=== PATIENT | male | born 1985 | race American Indian/Alaskan Native ===

== ENCOUNTER 2019-05-22 11:16 | Inpatient (IN) | payer BC ==
--- NOTE | 2019-05-22 11:27 | Emergency Department Report ---
Blank Doc - Documentation Documentation: 33-year-old male that presents with weakness, body aches, and tingling sensati on. This initial assessment/diagnostic orders/clinical plan/treatment(s) is/are subject to change based on patient's health status, clinical progression and re- assessment by fellow clinical providers in the ED. Further treatment and workup at subsequent clinical providers discretion. Patient/guardians urged not to elope from the ED as their condition may be serious if not clinically assessed and managed. Initial orders include: 1- Patient sent to Main for further evaluation and treatment 2- labs 3- UA
[2019-05-22] MEDS ORDERED: SODIUM CHLORIDE 0.9% 1000 ML 1,000 ML IV ONE ×4 (11:39→16:54)
[2019-05-22] MEDS ORDERED: INSULIN REGULAR, HUMAN 100 UNITS/1 ML IV ONE ×3 (11:49→16:54)
[2019-05-22] MEDS ORDERED: ONDANSETRON 4 MG/2 ML INJ IV ONE ×2 (11:58→15:49)
[2019-05-22 12:02] LABS: Basophils % (Auto) 0.3 % (0.0-1.8); Eosinophils # (Auto) 0.2 K/mm3 (0.0-0.4); Eosinophils % (Auto) 1.9 % (0.0-4.3); Hemoglobin 17.2 gm/dl (11.8-15.2); Lymphocytes # (Auto) 1.6 K/mm3 (1.2-5.4); Mean Corpuscular HGB Conc 34 % (32-34); Mean Corpuscular Volume 91 fl (84-94); Monocytes # (Auto) 0.6 K/mm3 (0.0-0.8); Monocytes % (Auto) 6.1 % (0.0-7.3); Platelet Count 304 K/mm3 (140-440); Red Blood Count 5.49 M/mm3 (3.65-5.03); Red Cell Distribution Width 13.1 % (13.2-15.2)
--- NOTE | 2019-05-22 12:08 | Emergency Department Report ---
ED General Adult HPI - General Chief complaint: Hyperglycemia Stated complaint: LEGS TINGLING/VOMITING/WEAKNESS Time Seen by Provider: 05/22/19 11:26 Source: patient Mode of arrival: Ambulatory Limitations: No Limitations - History of Present Illness Initial comments: 33-year-old male with a past medical history [id number] diabetes, asthma, hypertension, and obesity presents to the hospital complaining of uncontrolled sugars and feeling bad for the last week. Patient stopped taking his metformin on May 14. He has plenty of medication available. He started to have increased thirst, increased frequency in urination, bilateral leg pain, intermittent nausea vomiting and therefore we started the medication on May 19. Despite restarting the medication he does not feel any better. He denies any abdominal pain, fever, or dysuria. Current meds include metformin 500 mg twice a day Lisinopril/hydrochlorothiazide 20/25 mg PMD: Dr Nuñez - Related Data Home Medications Medication Instructions Recorded Confirmed Last Taken Acetaminophen-Codeine #4 TAB 2 PO Q6H 02/17/15 02/17/15 Unknown Previous Rx's Medication Instructions Recorded Last Taken Type Metoprolol [Lopressor TAB] 25 mg PO BID #60 tablet 02/21/15 Unknown Rx amLODIPine [Norvasc] 5 mg PO DAILY #30 tab 02/21/15 Unknown Rx Allergies Allergy/AdvReac Type Severity Reaction Status Date / Time No Known Allergies Allergy Verified 02/21/15 08:39 ED Review of Systems ROS: Stated complaint: LEGS TINGLING/VOMITING/WEAKNESS Other details as noted in HPI ED Past Medical Hx - Past Medical History Previous Medical History?: Yes Hx Hypertension: Yes Hx Congestive Heart Failure: No Hx Diabetes: Yes Hx Asthma: Yes Hx COPD: No Additional medical history: chronic pain - Surgical History Additional Surgical History: CRISPIN - Social History Smoking Status: Current Every Day Smoker Substance Use Type: Alcohol - Medications Home Medications: Home Medications Medication Instructions Recorded Confirmed Last Taken Type Acetaminophen-Codeine #4 TAB 2 PO Q6H 02/17/15 02/17/15 Unknown History Metoprolol [Lopressor TAB] 25 mg PO BID #60 tablet 02/21/15 Unknown Rx amLODIPine [Norvasc] 5 mg PO DAILY #30 tab 02/21/15 Unknown Rx ED Physical Exam - General Limitations: No Limitations ED Course Vital Signs 05/22/19 05/22/19 05/22/19 11:17 12:24 12:30 Temperature 97.4 F L Pulse Rate 109 H 106 H Respiratory 18 10 L Rate Blood Pressure 151/82 138/71 O2 Sat by Pulse 93 89 96 Oximetry 05/22/19 05/22/19 05/22/19 12:46 13:00 14:00 Temperature Pulse Rate 108 H 109 H 97 H Respiratory 11 L 22 16 Rate Blood Pressure 121/70 122/68 121/76 O2 Sat by Pulse 93 95 98 Oximetry 05/22/19 05/22/19 14:16 14:30 Temperature Pulse Rate 94 H 95 H Respiratory 14 11 L Rate Blood Pressure 102/72 106/67 O2 Sat by Pulse 94 93 Oximetry ED Medical Decision Making - Lab Data Result diagrams: 05/22/19 11:46 05/22/19 11:46 Lab Results 05/22/19 05/22/19 05/22/19 Range/Units 11:32 11:46 11:46 WBC 10.5 (4.5-11.0) K/mm3 RBC 5.49 H (3.65-5.03) M/mm3 Hgb 17.2 H (11.8-15.2) gm/dl Hct 50.0 H (35.5-45.6) % MCV 91 (84-94) fl MCH 31 (28-32) pg MCHC 34 (32-34) % RDW 13.1 L (13.2-15.2) % Plt Count 304 (140-440) K/mm3 Lymph % (Auto) 15.0 (13.4-35.0) % [place] % (Auto) 6.1 (0.0-7.3) % Eos % (Auto) 1.9 (0.0-4.3) % Baso % (Auto) 0.3 (0.0-1.8) % Lymph # 1.6 (1.2-5.4) K/mm3 [place] # 0.6 (0.0-0.8) K/mm3 Eos # 0.2 (0.0-0.4) K/mm3 Baso # 0.0 (0.0-0.1) K/mm3 Seg Neutrophils % 76.7 H (40.0-70.0) % Seg Neutrophils # 8.1 H (1.8-7.7) K/mm3 VBG pH (7.320-7.420) Sodium 119 L* (137-145) mmol/L Potassium 4.4 (3.6-5.0) mmol/L Chloride 76.3 L (98-107) mmol/L Carbon Dioxide 19 L (22-30) mmol/L Anion Gap 28 mmol/L BUN 27 H (9-20) mg/dL Creatinine 1.4 (0.8-1.5) mg/dL Estimated GFR > 60 ml/min BUN/Creatinine Ratio 19 % Glucose 870 H* (75-100) mg/dL POC Glucose > 500 H (70-105) Calcium 9.3 (8.4-10.2) mg/dL Total Bilirubin 1.40 H (0.1-1.2) mg/dL AST 21 (5-40) units/L ALT 28 (7-56) units/L Alkaline Phosphatase 113 (35-129) units/L Total Protein 7.6 (6.3-8.2) g/dL Albumin 4.0 (3.9-5) g/dL Albumin/Globulin Ratio 1.1 % Urine Color (Yellow) Urine Turbidity (Clear) Urine pH (5.0-7.0) Ur Specific [place] (1.003-1.030) Urine Protein (Negative) mg/dL Urine Glucose (UA) (Negative) mg/dL Urine Ketones (Negative) mg/dL Urine Blood (Negative) Urine Nitrite (Negative) Urine Bilirubin (Negative) Urine Urobilinogen (<2.0) mg/dL Ur Leukocyte Esterase (Negative) Urine WBC (Auto) (0.0-6.0) /HPF Urine RBC (Auto) (0.0-6.0) /HPF U Epithel Cells (Auto) (0-13.0) /HPF Urine Mucus /HPF 05/22/19 05/22/19 Range/Units 11:46 11:48 WBC (4.5-11.0) K/mm3 RBC (3.65-5.03) M/mm3 Hgb (11.8-15.2) gm/dl Hct (35.5-45.6) % MCV (84-94) fl MCH (28-32) pg MCHC (32-34) % RDW (13.2-15.2) % Plt Count (140-440) K/mm3 Lymph % (Auto) (13.4-35.0) % [place] % (Auto) (0.0-7.3) % Eos % (Auto) (0.0-4.3) % Baso % (Auto) (0.0-1.8) % Lymph # (1.2-5.4) K/mm3 [place] # (0.0-0.8) K/mm3 Eos # (0.0-0.4) K/mm3 Baso # (0.0-0.1) K/mm3 Seg Neutrophils % (40.0-70.0) % Seg Neutrophils # (1.8-7.7) K/mm3 VBG pH 7.410 (7.320-7.420) Sodium (137-145) mmol/L Potassium (3.6-5.0) mmol/L Chloride (98-107) mmol/L Carbon Dioxide (22-30) mmol/L Anion Gap mmol/L BUN (9-20) mg/dL Creatinine (0.8-1.5) mg/dL Estimated GFR ml/min BUN/Creatinine Ratio % Glucose (75-100) mg/dL POC Glucose (70-105) Calcium (8.4-10.2) mg/dL Total Bilirubin (0.1-1.2) mg/dL AST (5-40) units/L ALT (7-56) units/L Alkaline Phosphatase (35-129) units/L Total Protein (6.3-8.2) g/dL Albumin (3.9-5) g/dL Albumin/Globulin Ratio % Urine Color Straw (Yellow) Urine Turbidity Clear (Clear) Urine pH 6.0 (5.0-7.0) Ur Specific [place] 1.026 (1.003-1.030) Urine Protein <15 mg/dl (Negative) mg/dL Urine Glucose (UA) >=500 (Negative) mg/dL Urine Ketones Neg (Negative) mg/dL Urine Blood Neg (Negative) Urine Nitrite Neg (Negative) Urine Bilirubin Neg (Negative) Urine Urobilinogen < 2.0 (<2.0) mg/dL Ur Leukocyte Esterase Neg (Negative) Urine WBC (Auto) < 1.0 (0.0-6.0) /HPF Urine RBC (Auto) 2.0 (0.0-6.0) /HPF U Epithel Cells (Auto) < 1.0 (0-13.0) /HPF Urine Mucus Few /HPF corrected sodium tapia 131, Elizabeth 137 - Medical Decision Making pt provided toradol and morphine for cramps glucose improving with treatment Insulin boluses and normal saline pseudohyponatremia due to hyperglcemia corrected value 131-137 repeat bmp ordered hospitalist informed for admission - Differential Diagnosis hhnk, hyperglycemia, dka, uti, dehydration Critical Care Time: No Critical care attestation.: If time is entered above; I have spent that time in minutes in the direct care of this critically ill patient, excluding procedure time. ED Disposition Clinical Impression: Hyperglycemia, Noncompliance with medication regimen, Morbid obesity with BMI of 45.0-49.9, adult Disposition: OP ADMIT IP TO THIS HOSP Is pt being admited?: Yes Condition: Stable Referrals: TERRENCE NUÑEZ MD [Primary Care Provider] - 3-5 Days Time of Disposition: 17:03 (Dr Mike/hosp)
[2019-05-22 12:14] LABS: Bilirubin,Urine NEG (Negative); Blood,Urine NEG (Negative); Color,Urine Straw (Yellow); Mucus,Urine FEW /HPF; Protein,Urine <15 mg/dL mg/dL (Negative); Urobilinogen,Urine < 2.0 mg/dL (<2.0); WBC,Urine < 1.0 /HPF (0.0-6.0)
[2019-05-22 12:32] LABS: Alanine Aminotransferase 28 units/L (7-56); BUN/Creatinine Ratio 19; Blood Urea Nitrogen 27 mg/dL (9-20); Calcium 9.3 mg/dL (8.4-10.2); Hemolysis Index 51
[2019-05-22] MEDS ORDERED: KETOROLAC 30 MG/1 ML INJ IV ONE (13:05)
[2019-05-22] MEDS ORDERED: HYDROmorphone 1 MG/1 ML INJ IV ONE (13:51)
[2019-05-22] MEDS ORDERED: MORPHINE 4 MG/1 ML INJ IV ONE (15:49)
[2019-05-22 17:44] LABS: BUN/Creatinine Ratio 17; Blood Urea Nitrogen 26 mg/dL (9-20); Calcium 8.2 mg/dL (8.4-10.2); Hemolysis Index 38
[2019-05-22] MEDS ORDERED: ACETAMINOPHEN 325 MG TAB PO PRN ×2 (18:10→18:11)
[2019-05-22] MEDS ORDERED: ONDANSETRON 4 MG/2 ML INJ IV PRN (18:10)
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
[2019-05-22] MEDS ORDERED: POTASSIUM CHLORIDE 10 MEQ 10 MEQ/100 ML BAG IV PRN ×2 (19:00)
[2019-05-22] MEDS ORDERED: D5W/0.45% NACL/KCL 20 MEQ 20 MEQ/1,000 ML BAG IV SCH (19:00)
[2019-05-22] MEDS ORDERED: amLODIPine 5 MG TAB PO SCH (19:00)
[2019-05-22] MEDS ORDERED: INSULIN REGULAR, HUMAN 100 UNITS in SODIUM CHLORIDE 0.9% 99 ML IV SCH (19:00)
[2019-05-22] MEDS: HYDROmorphone 1 MG/1 ML INJ IV PRN ×2 (19:26→22:53)
[2019-05-22] MEDS ORDERED: HYDROmorphone 1 MG/1 ML INJ ONE ×2 (19:27→22:55)
[2019-05-22 22:27] LABS: BUN/Creatinine Ratio 16; Blood Urea Nitrogen 21 mg/dL (9-20); Calcium 8.2 mg/dL (8.4-10.2); Hemolysis Index 228
[2019-05-22] MEDS ORDERED: HEPARIN 5,000 UNIT/1 ML VIAL ONE (22:45)
[2019-05-22] MEDS ORDERED: FAMOTIDINE 20 MG/2 ML INJ IV ONE (22:46)
[2019-05-22] MEDS: HEPARIN 5,000 UNIT/1 ML VIAL SUB-Q SCH (22:51)
[2019-05-22] MEDS: FAMOTIDINE 20 MG/2 ML INJ IV SCH (22:51)
[2019-05-22] MEDS: METOPROLOL TARTRATE 25 MG TAB PO SCH (22:54)
[2019-05-23 01:33] LABS: BUN/Creatinine Ratio 17; Blood Urea Nitrogen 19 mg/dL (9-20); Hemolysis Index 32
[2019-05-23] MEDS ORDERED: ACETAMINOPHEN 325 MG TAB ONE (03:25)
[2019-05-23] MEDS ORDERED: ONDANSETRON 4 MG/2 ML INJ ONE ×2 (03:25→07:54)
[2019-05-23 03:52] LABS: Blood Urea Nitrogen 19 mg/dL (9-20)
[2019-05-23 03:53] LABS: BUN/Creatinine Ratio 17; Hemolysis Index 32
[2019-05-23 04:08] LABS: BUN/Creatinine Ratio 20; Blood Urea Nitrogen 18 mg/dL (9-20); Calcium 8.2 mg/dL (8.4-10.2); Hemolysis Index 39
[2019-05-23 04:26] LABS: Hematocrit 44.8 % (35.5-45.6); Hemoglobin 15.9 gm/dl (11.8-15.2); Mean Corpuscular HGB Conc 36 % (32-34); Mean Corpuscular Volume 89 fl (84-94); Platelet Count 244 K/mm3 (140-440); Red Blood Count 5.05 M/mm3 (3.65-5.03); Red Cell Distribution Width 12.9 % (13.2-15.2)
[2019-05-23 04:27] LABS: Basophils % (Auto) 0.4 % (0.0-1.8); Eosinophils # (Auto) 0.3 K/mm3 (0.0-0.4); Eosinophils % (Auto) 3.9 % (0.0-4.3); Lymphocytes % (Auto) 25.8 % (13.4-35.0); Monocytes # (Auto) 0.6 K/mm3 (0.0-0.8); Monocytes % (Auto) 7.4 % (0.0-7.3)
[2019-05-23 04:50] LABS: Alanine Aminotransferase 36 units/L (7-56); Albumin 3.7 g/dL (3.9-5); BUN/Creatinine Ratio 16; Blood Urea Nitrogen 16 mg/dL (9-20); Calcium 8.2 mg/dL (8.4-10.2); Hemolysis Index 7
[2019-05-23] MEDS ORDERED: POTASSIUM CHLORIDE 10 MEQ 10 MEQ/100 ML BAG IV ONE (05:51)
[2019-05-23] MEDS ORDERED: D5NS W/KCL 20 MEQ 20 MEQ/1,000 ML BAG IV SCH (06:00)
[2019-05-23] MEDS: oxyCODONE /ACETAMINOPHEN 5-325MG TAB PO PRN ×2 (07:55→21:41)
[2019-05-23] MEDS ORDERED: oxyCODONE /ACETAMINOPHEN 5-325MG TAB ONE (07:55)
[2019-05-23] MEDS: ONDANSETRON 4 MG/2 ML INJ IV PRN ×2 (07:56→16:27)
[2019-05-23] MEDS ORDERED: INSULIN NPH/REGULAR 70/30 INJ SUB-Q SCH (08:00)
--- NOTE | 2019-05-23 08:08 | Progress Note ---
Assessment and Plan Assessment and plan: --Hyperosmolar nonketotic hyperglycemia On insulin drip, blood sugars reasonable level DC Insulin drip, start ADA diet, Hb A1c 10.7 Change IV fluids to normal saline, Started on 70/30 Patient was noncompliant with metformin, wants to start back metformin instead of long-acting insulin Accu-Chek sliding scale coverage ADA diet Diabetic education, nutrition consult --Hypokalemia; replace per protocol and monitor levels --polycythemia due to fall in plasma volume Trending down --metabolic acidosis Significant improvement , continue IV hydration --Pseudohyponatremia due to hyperglycemia Improving as the blood sugars are getting controlled --Hypertension Continue current antihypertensives when necessary medications --Severe Dehydration; IV hydration, encourage plenty oral fluids --Morbid obesity with BMI of 45.0-49.9 Advised weight reduction, lifestyle changes Exercise as tolerated --Medical Noncompliance: Patient strongly advised to comply with medications diet and exercise Verbalized understanding --DVT prophylaxis: Heparin Monitor closely and adjust management as needed Plan of care reviewed with the patient, family members at the bedside Possible discharge in 1 to 2 days if stable Critical care time 32 minutes History Interval history: Patient seen and examined medical records reviewed Patient was admitted with hyperosmolar nonketotic hyperglycemia On insulin drip, patient's blood sugars are reasonable level Patient complains of polyuria polydipsia Denies nausea vomiting Vital signs noted Hospitalist Physical - Constitutional Vitals: Temp Pulse Resp BP Pulse Ox 97.4 F L 80 18 150/72 98 05/22/19 11:17 05/23/19 08:04 05/23/19 08:04 05/23/19 08:04 05/23/19 08:04 General appearance: Present: mild distress, well-nourished, obese (Morbidly obese) - EENT Eyes: Present: PERRL, EOM intact - Neck Neck: Present: supple, normal ROM - Respiratory Respiratory effort: normal Respiratory: bilateral: diminished, negative: rales, rhonchi, wheezing - Cardiovascular Rhythm: regular Heart Sounds: Present: S1 & S2 - Extremities Extremities: no ischemia, No edema - Abdominal General gastrointestinal: soft, non-tender, non-distended, normal bowel sounds - Integumentary Integumentary: Present: clear, warm - Psychiatric Psychiatric: appropriate mood/affect, cooperative - Neurologic Neurologic: moves all extremities Results - Labs CBC & Chem 7: 05/23/19 04:07 05/23/19 11:41 Labs: Laboratory Last Values WBC 7.8 K/mm3 (4.5-11.0) 05/23/19 04:07 RBC 5.05 M/mm3 (3.65-5.03) H 05/23/19 04:07 Hgb 15.9 gm/dl (11.8-15.2) H 05/23/19 04:07 Hct 44.8 % (35.5-45.6) 05/23/19 04:07 MCV 89 fl (84-94) 05/23/19 04:07 MCH 31 pg (28-32) 05/23/19 04:07 MCHC 36 % (32-34) H 05/23/19 04:07 RDW 12.9 % (13.2-15.2) L 05/23/19 04:07 Plt Count 244 K/mm3 (140-440) 05/23/19 04:07 Lymph % (Auto) 25.8 % (13.4-35.0) 05/23/19 04:07 Emanuel % (Auto) 7.4 % (0.0-7.3) H 05/23/19 04:07 Eos % (Auto) 3.9 % (0.0-4.3) 05/23/19 04:07 Baso % (Auto) 0.4 % (0.0-1.8) 05/23/19 04:07 Lymph # 2.0 K/mm3 (1.2-5.4) 05/23/19 04:07 Emanuel # 0.6 K/mm3 (0.0-0.8) 05/23/19 04:07 Eos # 0.3 K/mm3 (0.0-0.4) 05/23/19 04:07 Baso # 0.0 K/mm3 (0.0-0.1) 05/23/19 04:07 Seg Neutrophils % 62.5 % (40.0-70.0) 05/23/19 04:07 Seg Neutrophils # 4.9 K/mm3 (1.8-7.7) 05/23/19 04:07 VBG pH 7.410 (7.320-7.420) 05/22/19 11:46 Sodium 128 mmol/L (137-145) L 05/23/19 04:07 Potassium 3.3 mmol/L (3.6-5.0) L 05/23/19 04:07 Chloride 90.7 mmol/L (98-107) L 05/23/19 04:07 Carbon Dioxide 28 mmol/L (22-30) 05/23/19 04:07 Anion Gap 13 mmol/L 05/23/19 04:07 BUN 16 mg/dL (9-20) 05/23/19 04:07 Creatinine 1.0 mg/dL (0.8-1.5) 05/23/19 04:07 Estimated GFR > 60 ml/min 05/23/19 04:07 BUN/Creatinine Ratio 16 % 05/23/19 04:07 Glucose 264 mg/dL (75-100) H 05/23/19 04:07 POC Glucose 223 (70-105) H 05/23/19 06:34 Hemoglobin A1c 10.7 % (4-6) H 05/22/19 21:56 Calcium 8.2 mg/dL (8.4-10.2) L 05/23/19 04:07 Phosphorus 4.00 mg/dL (2.5-4.5) 05/22/19 21:56 Magnesium 1.90 mg/dL (1.7-2.3) 05/22/19 21:56 Total Bilirubin 1.10 mg/dL (0.1-1.2) 05/23/19 04:07 AST 40 units/L (5-40) 05/23/19 04:07 ALT 36 units/L (7-56) 05/23/19 04:07 Alkaline Phosphatase 87 units/L (35-129) 05/23/19 04:07 Total Protein 6.7 g/dL (6.3-8.2) 05/23/19 04:07 Albumin 3.7 g/dL (3.9-5) L 05/23/19 04:07 Albumin/Globulin Ratio 1.2 % 05/23/19 04:07 Urine Color Straw (Yellow) 05/22/19 11:48 Urine Turbidity Clear (Clear) 05/22/19 11:48 Urine pH 6.0 (5.0-7.0) 05/22/19 11:48 Ur Specific [place] 1.026 (1.003-1.030) 05/22/19 11:48 Urine Protein <15 mg/dl mg/dL (Negative) 05/22/19 11:48 Urine Glucose (UA) >=500 mg/dL (Negative) 05/22/19 11:48 Urine Ketones Neg mg/dL (Negative) 05/22/19 11:48 Urine Blood Neg (Negative) 05/22/19 11:48 Urine Nitrite Neg (Negative) 05/22/19 11:48 Urine Bilirubin Neg (Negative) 05/22/19 11:48 Urine Urobilinogen < 2.0 mg/dL (<2.0) 05/22/19 11:48 Ur Leukocyte Esterase Neg (Negative) 05/22/19 11:48 Urine WBC (Auto) < 1.0 /HPF (0.0-6.0) 05/22/19 11:48 Urine RBC (Auto) 2.0 /HPF (0.0-6.0) 05/22/19 11:48 U Epithel Cells (Auto) < 1.0 /HPF (0-13.0) 05/22/19 11:48 Urine Mucus Few /HPF 05/22/19 11:48 Active Medications - Current Medications Current Medications: Generic Name Dose Route Start Last Admin Trade Name Freq PRN Reason Stop Dose Admin Acetaminophen 650 mg 05/22/19 18:11 05/23/19 03:25 Tylenol PO 650 mg Q4H PRN Administration Pain MILD(1-3)/Fever >100.5/LLAMAS Amlodipine Besylate 10 mg 05/23/19 10:00 Amlodipine PO DAILY LY Famotidine 20 mg 05/22/19 22:00 05/22/19 22:51 Pepcid IV 20 mg BID LY Administration Heparin Sodium (Porcine) 5,000 unit 05/22/19 22:00 05/22/19 22:51 Heparin SUB-Q 5,000 unit Q12HR LY Administration Hydromorphone HCl 0.5 mg 05/22/19 18:10 05/22/19 22:53 Dilaudid IV 0.5 mg Q3H PRN Administration Pain , Severe (7-10) Potassium Chloride 10 meq in 100 mls @ 100 mls/hr 05/22/19 19:00 05/23/19 06:43 Kcl 10meq/100ml IV 100 mls/hr Q1H PRN Administration K+ BETWEEN 3.0 AND 3.3 Potassium Chloride 10 meq in 100 mls @ 100 mls/hr 05/22/19 19:00 Kcl 10meq/100ml IV Q1H PRN K+ BETWEEN 2.6 - 2.9 Sodium Chloride 1,000 mls @ 150 mls/hr 05/23/19 08:15 Nacl 0.9% 1000 Ml IV DIRECT LY Insulin Human Isoph/Insulin Regular 20 unit 05/23/19 08:00 Humulin 70/30 SUB-Q BIDDIAB [facility] Metoprolol Tartrate 25 mg 05/22/19 22:00 05/22/19 22:54 Metoprolol PO Not Given BID [facility] Ondansetron HCl 4 mg 05/22/19 18:11 05/23/19 07:56 Zofran IV 4 mg Q8H PRN Administration Nausea And Vomiting Oxycodone/Acetaminophen 1 tab 05/22/19 18:10 05/23/19 07:55 Percocet 5/325 PO 1 tab Q6H PRN Administration Pain, Moderate (4-6) Sodium Chloride 10 ml 05/22/19 22:00 05/22/19 22:08 Sodium Chloride Flush Syringe 10 Ml IV 10 ml BID LY Administration Sodium Chloride 10 ml 05/22/19 18:11 Sodium Chloride Flush Syringe 10 Ml IV PRN PRN LINE FLUSH
[2019-05-23 12:30] LABS: BUN/Creatinine Ratio 16; Blood Urea Nitrogen 14 mg/dL (9-20); Calcium 8.5 mg/dL (8.4-10.2); Hemolysis Index 24
[2019-05-23] MEDS: METOPROLOL TARTRATE 25 MG TAB PO SCH ×2 (12:49→21:42)
[2019-05-23] MEDS: amLODIPine 10 MG TAB PO SCH (12:49)
[2019-05-23] MEDS: FAMOTIDINE 20 MG/2 ML INJ IV SCH (12:50)
[2019-05-23] MEDS: HEPARIN 5,000 UNIT/1 ML VIAL SUB-Q SCH ×2 (12:50→21:52)
[2019-05-23] MEDS: INSULIN LISPRO 100 UNIT/ML SUB-Q SCH ×3 (13:27→22:24)
[2019-05-23] MEDS: INSULIN NPH/REGULAR 70/30 INJ SUB-Q SCH (18:11)
[2019-05-23 21:11] LABS: BUN/Creatinine Ratio 15; Blood Urea Nitrogen 15 mg/dL (9-20); Calcium 8.8 mg/dL (8.4-10.2); Hemolysis Index 20
[2019-05-23] MEDS: FAMOTIDINE 20 MG TAB PO SCH (21:52)
[2019-05-23] MEDS: HYDROmorphone 1 MG/1 ML INJ IV PRN (22:42)
[2019-05-24 06:44] LABS: BUN/Creatinine Ratio 13; Blood Urea Nitrogen 10 mg/dL (9-20); Calcium 8.7 mg/dL (8.4-10.2); Hemolysis Index 29
[2019-05-24] MEDS: HYDROmorphone 1 MG/1 ML INJ IV PRN ×2 (06:44→09:40)
[2019-05-24] MEDS: SODIUM CHLORIDE 0.9% 1000 ML 1,000 ML IV SCH ×3 (06:57→20:11)
[2019-05-24] MEDS: INSULIN LISPRO 100 UNIT/ML SUB-Q SCH ×4 (07:30→21:50)
[2019-05-24] MEDS: INSULIN NPH/REGULAR 70/30 INJ SUB-Q SCH (08:00)
[2019-05-24] MEDS ORDERED: metFORMIN 850 MG TAB PO ONE (08:15)
--- NOTE | 2019-05-24 08:17 | Progress Note ---
Assessment and Plan Assessment and plan: --Uncontrolled type 2 diabetes mellitus; Secondary to noncompliance, patient does not want to be on insulin And request to be on pills, patient was on metformin noncompliant Resumed metformin 850 mg p.o. to twice a day, A1c 10.7 Diabetic education, nutrition consult and education Patient strongly advised to comply with medications diet and exercise --s/p Hyperosmolar nonketotic hyperglycemia s/p insulin drip, IV fluids, long-acting insulin Discontinued long-acting insulin started on metformin As requested by the patient Accu-Chek sliding scale coverage ADA diet Diabetic education, nutrition consult --Hypokalemia; replace per protocol and monitor levels --metabolic acidosis Significant improvement , continue IV hydration --Pseudohyponatremia due to hyperglycemia Improving as the blood sugars are getting controlled --Hypertension Continue current antihypertensives when necessary medications --Severe Dehydration; IV hydration, encourage plenty oral fluids --Morbid obesity with BMI of 45.0-49.9 Advised weight reduction, lifestyle changes Exercise as tolerated --Medical Noncompliance: Patient strongly advised to comply with medications diet and exercise Verbalized understanding --DVT prophylaxis: Heparin Monitor closely and adjust management as needed Plan of care reviewed with the patient, family members at the bedside Possible discharge in 1 to 2 days if stable Patient strongly advised to see automatic coin machine mechanic upon discharge History Interval history: Patient seen and examined medical records reviewed Patient's insulin is discontinued started on metformin as requested by the patient Blood sugars are uncontrolled Patient has no new complaints wants to go home Vital signs reviewed Hospitalist Physical - Constitutional Vitals: Temp Pulse Resp BP Pulse Ox 97.9 F 77 20 127/62 100 05/24/19 06:10 05/24/19 06:10 05/24/19 06:10 05/24/19 06:10 05/24/19 06:10 General appearance: Present: mild distress, well-nourished, obese (Morbidly obese) - EENT Eyes: Present: PERRL, EOM intact - Neck Neck: Present: supple, normal ROM - Respiratory Respiratory effort: normal, pursed lips Respiratory: bilateral: diminished, negative: rales, rhonchi, wheezing - Cardiovascular Rhythm: regular Heart Sounds: Present: S1 & S2 - Extremities Extremities: no ischemia, No edema - Abdominal General gastrointestinal: soft, non-tender, non-distended, normal bowel sounds - Integumentary Integumentary: Present: clear, warm - Psychiatric Psychiatric: appropriate mood/affect, cooperative - Neurologic Neurologic: CNII-XII intact, moves all extremities Results - Labs CBC & Chem 7: 05/23/19 04:07 05/24/19 05:25 Labs: Laboratory Last Values WBC 7.8 K/mm3 (4.5-11.0) 05/23/19 04:07 RBC 5.05 M/mm3 (3.65-5.03) H 05/23/19 04:07 Hgb 15.9 gm/dl (11.8-15.2) H 05/23/19 04:07 Hct 44.8 % (35.5-45.6) 05/23/19 04:07 MCV 89 fl (84-94) 05/23/19 04:07 MCH 31 pg (28-32) 05/23/19 04:07 MCHC 36 % (32-34) H 05/23/19 04:07 RDW 12.9 % (13.2-15.2) L 05/23/19 04:07 Plt Count 244 K/mm3 (140-440) 05/23/19 04:07 Lymph % (Auto) 25.8 % (13.4-35.0) 05/23/19 04:07 [place] % (Auto) 7.4 % (0.0-7.3) H 05/23/19 04:07 Eos % (Auto) 3.9 % (0.0-4.3) 05/23/19 04:07 Baso % (Auto) 0.4 % (0.0-1.8) 05/23/19 04:07 Lymph # 2.0 K/mm3 (1.2-5.4) 05/23/19 04:07 [place] # 0.6 K/mm3 (0.0-0.8) 05/23/19 04:07 Eos # 0.3 K/mm3 (0.0-0.4) 05/23/19 04:07 Baso # 0.0 K/mm3 (0.0-0.1) 05/23/19 04:07 Seg Neutrophils % 62.5 % (40.0-70.0) 05/23/19 04:07 Seg Neutrophils # 4.9 K/mm3 (1.8-7.7) 05/23/19 04:07 VBG pH 7.410 (7.320-7.420) 05/22/19 11:46 Sodium 130 mmol/L (137-145) L 05/24/19 05:25 Potassium 3.7 mmol/L (3.6-5.0) 05/24/19 05:25 Chloride 90.6 mmol/L (98-107) L 05/24/19 05:25 Carbon Dioxide 28 mmol/L (22-30) 05/24/19 05:25 Anion Gap 15 mmol/L 05/24/19 05:25 BUN 10 mg/dL (9-20) 05/24/19 05:25 Creatinine 0.8 mg/dL (0.8-1.5) 05/24/19 05:25 Estimated GFR > 60 ml/min 05/24/19 05:25 BUN/Creatinine Ratio 13 % 05/24/19 05:25 Glucose 279 mg/dL (75-100) H 05/24/19 05:25 POC Glucose 242 (70-105) H 05/24/19 07:50 Hemoglobin A1c 10.7 % (4-6) H 05/22/19 21:56 Calcium 8.7 mg/dL (8.4-10.2) 05/24/19 05:25 Phosphorus 3.00 mg/dL (2.5-4.5) D 05/24/19 05:25 Magnesium 2.00 mg/dL (1.7-2.3) 05/24/19 05:25 Total Bilirubin 1.10 mg/dL (0.1-1.2) 05/23/19 04:07 AST 40 units/L (5-40) 05/23/19 04:07 ALT 36 units/L (7-56) 05/23/19 04:07 Alkaline Phosphatase 87 units/L (35-129) 05/23/19 04:07 Total Protein 6.7 g/dL (6.3-8.2) 05/23/19 04:07 Albumin 3.7 g/dL (3.9-5) L 05/23/19 04:07 Albumin/Globulin Ratio 1.2 % 05/23/19 04:07 Urine Color Straw (Yellow) 05/22/19 11:48 Urine Turbidity Clear (Clear) 05/22/19 11:48 Urine pH 6.0 (5.0-7.0) 05/22/19 11:48 Ur Specific [place] 1.026 (1.003-1.030) 05/22/19 11:48 Urine Protein <15 mg/dl mg/dL (Negative) 05/22/19 11:48 Urine Glucose (UA) >=500 mg/dL (Negative) 05/22/19 11:48 Urine Ketones Neg mg/dL (Negative) 05/22/19 11:48 Urine Blood Neg (Negative) 05/22/19 11:48 Urine Nitrite Neg (Negative) 05/22/19 11:48 Urine Bilirubin Neg (Negative) 05/22/19 11:48 Urine Urobilinogen < 2.0 mg/dL (<2.0) 05/22/19 11:48 Ur Leukocyte Esterase Neg (Negative) 05/22/19 11:48 Urine WBC (Auto) < 1.0 /HPF (0.0-6.0) 05/22/19 11:48 Urine RBC (Auto) 2.0 /HPF (0.0-6.0) 05/22/19 11:48 U Epithel Cells (Auto) < 1.0 /HPF (0-13.0) 05/22/19 11:48 Urine Mucus Few /HPF 05/22/19 11:48 Active Medications - Current Medications Current Medications: Generic Name Dose Route Start Last Admin Trade Name Freq PRN Reason Stop Dose Admin Acetaminophen 650 mg 05/22/19 18:11 05/23/19 03:25 Tylenol PO 650 mg Q4H PRN Administration Pain MILD(1-3)/Fever >100.5/LLAMAS Amlodipine Besylate 10 mg 05/23/19 10:00 05/23/19 12:49 Amlodipine PO 10 mg DAILY LY Administration Famotidine 20 mg 05/23/19 22:00 05/23/19 21:52 Pepcid PO 20 mg BID LY Administration Heparin Sodium (Porcine) 5,000 unit 05/22/19 22:00 05/23/19 21:52 Heparin SUB-Q 5,000 unit Q12HR LY Administration Hydromorphone HCl 0.5 mg 05/22/19 18:10 05/24/19 06:44 Dilaudid IV 0.5 mg Q3H PRN Administration Pain , Severe (7-10) Sodium Chloride 1,000 mls @ 150 mls/hr 05/23/19 09:00 05/24/19 06:57 Nacl 0.9% 1000 Ml IV 150 mls/hr DIRECT LY Administration Insulin Human Lispro 0 unit 05/23/19 13:10 05/23/19 22:24 Humalog SUB-Q 4 unit ACHS LY Administration Protocol Metformin HCl 850 mg 05/24/19 17:00 Glucophage PO BIDDIAB LY Metformin HCl 850 mg 05/24/19 08:15 Glucophage PO 05/24/19 08:16 ONCE ONE Metoprolol Tartrate 25 mg 05/22/19 22:00 05/23/19 21:42 Metoprolol PO 25 mg BID LY Administration Ondansetron HCl 4 mg 05/22/19 18:11 05/23/19 16:27 Zofran IV 4 mg Q8H PRN Administration Nausea And Vomiting Oxycodone/Acetaminophen 1 tab 05/22/19 18:10 05/23/19 21:41 Percocet 5/325 PO 1 tab Q6H PRN Administration Pain, Moderate (4-6) Sodium Chloride 10 ml 05/22/19 22:00 05/23/19 22:26 Sodium Chloride Flush Syringe 10 Ml IV 10 ml BID LY Administration Sodium Chloride 10 ml 05/22/19 18:11 Sodium Chloride Flush Syringe 10 Ml IV PRN PRN LINE FLUSH Nutrition/Malnutrition Assess - Dietary Evaluation Nutrition/Malnutrition Findings: Nutrition Notes Start: 05/23/19 13:10 Freq: Status: Active Protocol: Document 05/23/19 13:10 DW (Rec: 05/23/19 14:41 DW [email or web address]) Co-Sign 05/23/19 13:10 LP Nutrition Notes Need for Assessment generated from: MD Order,Education Initial or Follow up Assessment Current Diagnosis Diabetes Other Pertinent Diagnosis DKA Current Diet Cardiac/Consistent CHO Labs/Tests A1C 10.7 Glu 264 Na 128 K 3.3 Ca 8.2 Pertinent Medications Reviewed Height 5 ft 11 in Weight 165.833 kg [place] Body Weight (kg) 78.18 BMI 51.0 Intake Prior to Admission Good Subjective/Other Information MD consult for DKA education Pt stated that he has two jobs and is consistently grabbing fast food to get him through the day. Pt stated he had a normal appetite and intake [employer] . Pt also stated he has no recent wt loss. Pt needed more DM education because his diagnosis is fairly new. Practice Administrator adviced pt to attend classes we provide on . Burn Absent Trauma Absent GI Symptoms None Minimum of two criteria No physical signs of malnutrition #2 Nutrition Diagnosis Limited adherence to nutrition -related recommendations Etiology pt not following DM diet As Evidenced by Signs and Symptoms pt stopped taking medication, pt does not check blood sugar, pt regularlly consuming fast food #1 Nutrition Diagnosis Food and nutrition-related knowledge deficit Etiology pt has minimal DM education As Evidenced by Signs and Symptoms pt requested education, A1C 10 .7, DKA Is patient on ventilator? No Is Patient Ambulatory and/or Out of Bed Yes REE-([place]-St. Jeor-ambulatory/OOB) [ 3406.598 [id number]] Kcal/Kg value to use for calculation 13 Approximate Energy Requirements Using 2156 kcal/Kg Calculation Used for Recommendations Kcal/kg Additional Notes PRO needs: 97-121 g (0.8-1 g/ kg AdjBW 121kg) Fluid needs: 1 ml/kcal Nutrition Intervention Change Diet Order: Continue Current Diet Teaching Recipient Patient Learning Readiness Good Teaching Methods Discussion,Handout Education Handouts Provided CHO Counting, Hyperglycemic/ Hypoglycemic Symptoms Barriers to Learning No Barriers RD phone number provided Yes Patient aware of follow up options Yes Goal #1 DM Diet Adherence Anticipated Discharge Needs: Consistent CHO Diet Revisit per MD consult or patient Sign Off request:
[2019-05-24] MEDS: ONDANSETRON 4 MG/2 ML INJ IV PRN ×2 (08:22→17:40)
[2019-05-24] MEDS: METOPROLOL TARTRATE 25 MG TAB PO SCH ×2 (09:32→21:49)
[2019-05-24] MEDS: FAMOTIDINE 20 MG TAB PO SCH ×2 (09:32→21:56)
[2019-05-24] MEDS: amLODIPine 10 MG TAB PO SCH (09:32)
[2019-05-24] MEDS: HEPARIN 5,000 UNIT/1 ML VIAL SUB-Q SCH ×2 (09:33→21:50)
[2019-05-24] MEDS: metFORMIN 850 MG TAB PO SCH (17:36)
[2019-05-24] MEDS: oxyCODONE /ACETAMINOPHEN 5-325MG TAB PO PRN ×2 (19:10→21:54)
[2019-05-24] MEDS ORDERED: oxyCODONE /ACETAMINOPHEN 5-325MG TAB PO PRN (21:32)
[2019-05-25 06:01] LABS: BUN/Creatinine Ratio 11; Blood Urea Nitrogen 9 mg/dL (9-20); Calcium 8.4 mg/dL (8.4-10.2); Hemolysis Index 31
[2019-05-25] MEDS: SODIUM CHLORIDE 0.9% 1000 ML 1,000 ML IV SCH ×2 (06:06→09:54)
[2019-05-25] MEDS: INSULIN LISPRO 100 UNIT/ML SUB-Q SCH ×2 (07:30→11:30)
[2019-05-25] MEDS: metFORMIN 850 MG TAB PO SCH (08:00)
[2019-05-25] MEDS: amLODIPine 10 MG TAB PO SCH (09:51)
[2019-05-25] MEDS: FAMOTIDINE 20 MG TAB PO SCH (09:52)
[2019-05-25] MEDS: METOPROLOL TARTRATE 25 MG TAB PO SCH (09:52)
[2019-05-25] MEDS: HEPARIN 5,000 UNIT/1 ML VIAL SUB-Q SCH (09:52)
--- NOTE | 2019-05-25 14:07 | Discharge Summary ---
Providers - Providers Date of Admission: 05/22/19 17:04 Date of discharge: 05/25/19 Attending physician: FERNANDO BELL 05/22/19 18:13 Consult to Dietitian/Nutrition [CONS] Routine Physician Instructions: Reason For Exam: DKA Reason for Consult: Nutrition Recommendations Reason for Consult: Diet education Primary care physician: TERRENCE LOAIZA Hospitalization Reason for admission: Hyperglycemia/Nausea and vomiting Condition: Stable Hospital course: Patient is a 33-year-old male with a past medical history of hypertension, diabetes, chronic pain and asthma who presents to [facility] ER today with complaints of , nausea and generalized weakness since 11am. patient was noted to be in Hyperosmolar nonketotic hyperglycemia.Started on insulin drip ,transitioned to long acting insulin and oral hypoglycemics. Received diabetic education ,nutrition education.A1c 10.7. Patient did not want to be on long acting insulin,wanted to continue metformin. Advised to see retread technician and PMD per schedule. Today patient is comfortable,no new complaints,vital signs stable. Physical exam unremarkable. Stable at discharge. Discharge Diagnosis: --Hyperosmolar nonketotic hyperglycemia: Resolved s/p insulin drip, IV fluids, long-acting insulin Accu-Chek sliding scale coverage ADA diet Diabetic education, nutrition consult --Uncontrolled type 2 diabetes mellitus; Secondary to noncompliance, patient does not want to be on insulin And request to be on pills, patient was on metformin noncompliant Resumed metformin 850 mg p.o. to twice a day, A1c 10.7 Diabetic education, nutrition education Patient strongly advised to comply with medications diet and exercise --Acute kidney injury; vasomotor nephropathy Present on admission, IV hydration Resolved --Hypokalemia; replace per protocol and monitor levels --metabolic acidosis Significant improvement , continue IV hydration --Pseudohyponatremia due to hyperglycemia Improving as the blood sugars are getting controlled --Hypertension Continue current antihypertensives when necessary medications --Severe Dehydration; IV hydration, encourage plenty oral fluids --Morbid obesity with BMI of 45.0-49.9 Advised weight reduction, lifestyle changes Exercise as tolerated --Medical Noncompliance: Patient strongly advised to comply with medications diet and exercise Verbalized understanding --DVT prophylaxis: Heparin Stable at discharge. Disposition: TO HOME OR SELFCARE Time spent for discharge: 32 min Core Measure Documentation - Palliative Care Palliative Care/ Comfort Measures: Not Applicable - Core Measures Any of the following diagnoses?: none Exam - Constitutional Vitals: Temp Pulse Resp BP Pulse Ox 98.5 F 85 18 148/101 96 05/25/19 05:03 05/25/19 05:03 05/25/19 06:02 05/25/19 05:03 05/25/19 05:03 General appearance: Present: no acute distress, well-nourished, obese (Morbid obesity) - EENT Eyes: Present: PERRL, EOM intact - Neck Neck: Present: supple, normal ROM - Respiratory Respiratory effort: normal Respiratory: negative: rales, rhonchi, wheezing - Cardiovascular Rhythm: regular Heart Sounds: Present: S1 & S2 - Extremities Extremities: no ischemia, pulses intact - Abdominal General gastrointestinal: Present: soft, non-tender, non-distended, normal bowel sounds - Integumentary Integumentary: Present: clear, warm - Musculoskeletal Musculoskeletal: strength equal bilaterally - Psychiatric Psychiatric: appropriate mood/affect, cooperative - Neurologic Neurologic: moves all extremities Plan Activity: no restrictions Diet: diabetic Special Instructions: smoking cessation Additional Instructions: Smoking cessation. Exercise as tolerated and weight reduction medically stable. Strongly advised to comply with medications, diet and exercise. As well as follow-up visits. Advised to see private retread technician for diabetes management. 2 days work excuse on 05/26/2019 and 05/27/2019 Follow up with: TERRENCE LOAIZA MD [Primary Care Provider] - 3-5 Days SAM AIKEN MD [Staff Physician] - 7 Days Forms: Work/School Release Form Prescriptions: amLODIPine 10 mg PO DAILY #30 tablet Metoprolol [Lopressor TAB] 25 mg PO BID #60 tablet Metformin HCl [metFORMIN] 1,000 mg PO BID #60 tablet Insulin Regular, Human [Novolin R] 5 units SC ACHS 30 Days #1 vial Lisinopril/Hydrochlorothiazide [Zestoretic 20-25 mg] 1 tab PO QDAY #30 tab Other Discharge Orders: Glucometer (Amb) Location: None Selected Glucometer supplies[Amb] Location: None Selected
[2019-05-25 16:32] VITALS: BP 119/70
== END 2019-05-25 16:15 | disposition home or self-care (01) | DRG 637 ==
LOC: ED 11:16 → 3A 17:04 → CC1 18:22 → 3A 05-23 08:41
PROVIDERS: ADMIT Internal Medicine; ATTEND Internal Medicine
DX: E11.00 Type 2 diabetes mellitus with hyperosmolarity without nonketotic hyperglycemic-hyperosmolar coma (NKHHC) (principal); N17.0 Acute kidney failure with tubular necrosis; E87.2 Acidosis; E87.1 Hypo-osmolality and hyponatremia; Z68.42 Body mass index [BMI] 45.0-49.9, adult; E66.01 Morbid (severe) obesity due to excess calories; J45.909 Unspecified asthma, uncomplicated; I10 Essential (primary) hypertension; F17.210 Nicotine dependence, cigarettes, uncomplicated; E86.0 Dehydration; D75.1 Secondary polycythemia; G89.29 Other chronic pain; E87.6 Hypokalemia; Z91.14 Patient's other noncompliance with medication regimen; Z79.899 Other long term (current) drug therapy; Z82.49 Family history of ischemic heart disease and other diseases of the circulatory system; Z90.49 Acquired absence of other specified parts of digestive tract; Z71.3 Dietary counseling and surveillance
CPT/HCPCS: 36415; 80048; 80053; 81001; 82805; 82962; 83036; 83735; 84100; 85025; 96365; 96375; 99406; G0378; J1170; J1644; J1815; J1885; J2270; J2405; J3480; J7030